=== PATIENT | male | born 1970 | race Two or more races ===

== ENCOUNTER 2023-10-25 17:36 | Inpatient (IN) | payer OTHER ==
[~2023-10-25] VITALS: Ht 167.6 cm; Wt 90.7 kg
[2023-10-26] MEDS ORDERED: FAMO20TA8 PO (05:21)
[2023-10-26] MEDS ORDERED: ASPI-495 PO (05:21)
[2023-10-26] MEDS ORDERED: ACET-73 PO (05:21)
[2023-10-26] MEDS ORDERED: ATOR40TA PO (05:21)
[2023-10-26] MEDS ORDERED: MECL-159 PO (05:21)
[2023-10-26 05:31] VITALS: BP 107/65; TEMP 97.8
[2023-10-26] MEDS: ASPIRIN EC 81 MG TABLET.DR PO SCH (09:15)
[2023-10-26] MEDS: FAMOTIDINE 20 MG TABLET PO SCH (09:16)
[2023-10-26 15:12] VITALS: BP 102/69; TEMP 98.4; O2SAT 95
[2023-10-26] MEDS: ACETAMINOPHEN 325 MG TABLET PO PRN (18:37)
[2023-10-26 20:25] VITALS: BP 101/61; TEMP 98.5; O2SAT 95
[2023-10-26] MEDS: ATORVASTATIN 40 MG TABLET PO SCH (21:02)
[2023-10-27 06:00] VITALS: BP 103/60; TEMP 97.8; O2SAT 96
[2023-10-27 15:42] VITALS: BP 110/69; TEMP 98.5; O2SAT 96
[2023-10-27 20:18] VITALS: BP 123/68; TEMP 97.9; O2SAT 96
[2023-10-28 06:36] VITALS: BP 108/68; TEMP 98; O2SAT 94
[2023-10-28 15:37] VITALS: BP 117/67; TEMP 97.7; O2SAT 96
[2023-10-28 20:39] VITALS: BP 99/62; TEMP 98; O2SAT 97
[2023-10-28] MEDS: ONDANSETRON HCL 4 MG TABLET PO PRN (21:31)
[2023-10-28] MEDS: MAGNESIUM HYDROXIDE 30 ML LIQUID UDC PO ONE (21:31)
[2023-10-28] MEDS: MECLIZINE HCL 25 MG TABLET PO STA (21:31)
[2023-10-29 06:00] VITALS: BP 101/63; TEMP 98; O2SAT 96
[2023-10-29 13:20] LABS: BASOPHILS % (AUTO) 0.6 % (0.0-2.0); EOSINOPHILS # (AUTO) 0.2 K/uL (0.0-0.7); EOSINOPHILS % (AUTO) 2.4 % (0.0-7.0); HEMOGLOBIN 15.9 g/dL (12.5-16.3); LYMPHOCYTES # (AUTO) 1.6 K/uL (0.8-4.8); LYMPHOCYTES % (AUTO) 19.7 % (20.5-51.5); MEAN CORPUSCULAR HEMOGLOBIN 31.3 uug (23.8-33.4); MEAN CORPUSCULAR HGB CONC 35 g/dL (32.5-36.3); MEAN CORPUSCULAR VOLUME 90.5 fL (73.0-96.2); MONOCYTES # (AUTO) 0.1 K/uL (0.1-1.30); MONOCYTES % (AUTO) 1.2 % (0.0-11.0); NEUTROPHILS # (AUTO) 6.1 K/uL (1.8-8.9); NEUTROPHILS % (AUTO) 76.1 % (38.5-71.5); PLATELET COUNT (AUTO) 221 K/uL (152-348); RED BLOOD CELL COUNT(AUTO) 5.08 MIL/uL (4.06-5.63); RED CELL DISTRIBUTION WIDTH 13.1 % (12.1-16.2); WHITE BLOOD COUNT (AUTO) 7.9 K/uL (3.6-10.2)
[2023-10-29 13:27] LABS: CALCIUM 8.2 mg/dL (8.5-10.1); CREATININE 0.8 mg/dL (0.6-1.3); POTASSIUM 3.8 mmol/L (3.5-5.1)
[2023-10-29 13:34] LABS: DIFFERENTIAL COMMENT 1
[2023-10-29 15:08] VITALS: BP 109/59; TEMP 98.9; O2SAT 95
[2023-10-29 19:52] VITALS: BP 107/66; TEMP 98.5; O2SAT 93
[2023-10-30 05:06] VITALS: BP 103/62; TEMP 97.6; O2SAT 96
[2023-10-30 16:00] VITALS: BP 116/80; TEMP 98.1; O2SAT 97
[2023-10-30 19:15] VITALS: BP 107/58; TEMP 97.5; O2SAT 96
[2023-10-31 05:47] VITALS: BP 108/55; TEMP 97.9; O2SAT 96
[2023-10-31 12:00] VITALS: BP 105/63; TEMP 98.2; O2SAT 94
[2023-10-31 16:00] VITALS: BP 115/68; TEMP 97.5; O2SAT 96
[2023-10-31 20:00] VITALS: BP 112/71; TEMP 98.4; O2SAT 98
[2023-10-31 20:17] LABS: THYROID STIMULATING HORMONE 1.803 mIU/mL (0.358-3.740)
[2023-11-01 04:00] VITALS: BP 106/70; TEMP 97.2; O2SAT 95
[2023-11-01 12:00] VITALS: BP 119/70; TEMP 98; O2SAT 96
[2023-11-01 16:00] VITALS: BP 132/86; TEMP 97; O2SAT 97
[2023-11-01 20:00] VITALS: BP 108/61; TEMP 98.7; O2SAT 93
[2023-11-01 23:36] VITALS: BP 103/75; TEMP 97.7; O2SAT 94
[2023-11-02 06:59] VITALS: BP 95/59; TEMP 98; O2SAT 95
== END 2023-11-02 15:35 | disposition home health service (06) | DRG 58 ==
LOC: EDBD 10-26 04:33
PROVIDERS: ADMIT Physical Medicine & Rehabilitation Pain Medicine; ATTEND Physical Medicine & Rehabilitation Pain Medicine
DX: I67.1 Cerebral aneurysm, nonruptured (principal); D68.59 Other primary thrombophilia; Q21.12 Patent foramen ovale; Q21.10 Atrial septal defect, unspecified; G81.94 Hemiplegia, unspecified affecting left nondominant side; E66.01 Morbid (severe) obesity due to excess calories; G43.909 Migraine, unspecified, not intractable, without status migrainosus; M19.012 Primary osteoarthritis, left shoulder; I95.1 Orthostatic hypotension; R00.1 Bradycardia, unspecified; Z68.32 Body mass index [BMI] 32.0-32.9, adult; F32.9 Major depressive disorder, single episode, unspecified; R79.89 Other specified abnormal findings of blood chemistry
CPT/HCPCS: 36415; 70450; 83921; 84443; 85025; 97535-GO-CO; A6213; J8597; Q0162